=== PATIENT | male | born 1970 | race Caucasian/White ===

== ENCOUNTER 2021-09-22 14:11 | Emergency (ER) | payer SELFPAY ==
[2021-09-22] VITALS (10 sets, daily range): BP systolic 125–149; BP diastolic 89–115
[~2021-09-22] VITALS: Ht 188 cm; Wt 130.0 kg
[2021-09-22] MEDS ORDERED: DIAZEPAM5 M1 PO (14:35)
[2021-09-22] MEDS ORDERED: OXYCODONE5 M1 PO (14:36)
[2021-09-22] MEDS ORDERED: GABAPENTIN100 MG PO (14:38)
[2021-09-22] MEDS ORDERED: TOPROL XL25 MG PO (14:38)
[2021-09-22 14:50] LABS: PROTHROMBIN TIME 10.5 SECONDS (9.0-12.5)
[2021-09-22 14:53] LABS: HEMATOCRIT 42.4 % (39.0-50.0); HEMOGLOBIN 13.4 g/dl (14.0-18.0); IMMATURE GRANULOCYTES 0.4 % (0.0-5.0); MEAN CELL VOLUME 90.2 fL CALC (80.0-100.0); MEAN CORPUSCULAR HGB 28.5 pG CALC (26.0-32.0); MEAN CORPUSCULAR HGB CONC 31.6 g/dL CAL (32.0-36.0); NEUT# 6.84 thou/uL (1.82-7.42); RED BLOOD COUNT 4.7 mill/uL (4.70-6.10); RED CELL DISTRI WIDTH 14.3 % (11.5-15.5)
[2021-09-22 14:54] LABS: ALBUMIN 3.8 g/dL (3.2-5.0); ALKALINE PHOSPHATASE 80 u/l (38-126); ANION GAP 9 (6-22 (CALC)); BILIRUBIN, TOTAL 0.4 mg/dL (0.0-1.4); BUN 11 mg/dL (9-20); BUN/CREATININE RATIO 16 (12-20 (CALC)); CARBON DIOXIDE 25 mmol/l (22-30); CHLORIDE 106 mmol/l (95-108); CREATININE 0.7 mg/dL (0.7-1.3); GFR > 60 ML/MIN (>=60 (CALC)); GFR FOR AFR.AMER. > 60 ML/MIN (>=60 (CALC)); POTASSIUM 4.7 mmol/l (3.5-5.1); SGOT/AST 23 u/l (17-59); SODIUM 135 mmol/l (137-146); TOTAL PROTEIN 7.1 g/dL (6.3-8.2)
[2021-09-22 15:04] LABS: MYOGLOBIN 21 ng/mL (0 - 121)
[2021-09-22 16:21] LABS: URINE BILIRUBIN - DIPSTICK NEGATIVE (NEGATIVE); URINE BLOOD DIPSTICK NEGATIVE (NEGATIVE); URINE COLOR YELLOW; URINE GLUCOSE - DIPSTICK NEGATIVE (NEGATIVE); URINE KETONE NEGATIVE (NEGATIVE); URINE LEUK ESTERASE NEGATIVE (NEGATIVE); URINE PH 5.5 (4.5-8.0); URINE PROTEIN - DIPSTICK NEGATIVE (NEG-TRACE); URINE SPECIFIC GRAVITY >=1.030; URINE UROBILINOGEN - DIPSTICK 0.2 E.U./dL (0.2)
[2021-09-22 16:25] LABS: URINE NITRITE - DIPSTICK NEGATIVE (Negative)
[2021-09-22] MEDS ORDERED: AMOX/K CLAV875 M1 PO (17:55)
== END 2021-09-22 18:46 | disposition left against medical advice (07) | DRG 291 ==
LOC: ED 14:11
PROVIDERS: Nurse Practitioner
DX: I50.9 Heart failure, unspecified (principal); J18.9 Pneumonia, unspecified organism; I48.91 Unspecified atrial fibrillation; F41.9 Anxiety disorder, unspecified; Z91.19 Patient's noncompliance with other medical treatment and regimen; Z20.822 Contact with and (suspected) exposure to COVID-19
CPT/HCPCS: J1650; J2060; Q9967